=== PATIENT | female | born 1990 | race Caucasian/White ===

== ENCOUNTER 2025-02-17 07:16 | Day surgery (SDC) | payer BC ==
[2025-02-17] VITALS (7 sets, daily range): BP systolic 126–142; BP diastolic 77–98; PULSE 70–103; RESP 10–16; TEMP 98.3; O2SAT 99–100
[~2025-02-17] VITALS: Ht 175.3 cm; Wt 73.8 kg
[~2025-02-17 07:16] MED LIST: NO HOME MEDS
[2025-02-17] MEDS: ringers solution, lacted 1,000 ML IV SCH (08:35)
[2025-02-17] MEDS ORDERED: LIDOcaine 2% (20mg/ml) 5ml vial ONE ×3 (09:17→10:05)
[2025-02-17] MEDS ORDERED: fentaNYL/PF 50MCG/1 ML 2ML syringe ONE ×2 (09:27→10:00)
[2025-02-17] MEDS ORDERED: MIDAZolam 1 MG/ML 5ML VIAL ONE (09:28)
[2025-02-17] MEDS ORDERED: propofol inj 20 ML IV ONE (09:47)
== END 2025-02-17 11:08 | disposition home or self-care (01) ==
LOC: GI LAB 07:16
PROVIDERS: ATTEND Internal Medicine Gastroenterology
DX: K92.1 Melena (principal); R10.30 Lower abdominal pain, unspecified; R11.2 Nausea with vomiting, unspecified; K31.89 Other diseases of stomach and duodenum; K57.30 Diverticulosis of large intestine without perforation or abscess without bleeding; K64.8 Other hemorrhoids; Z79.899 Other long term (current) drug therapy
CPT/HCPCS: 43239; 45378; 82948; J2003; J2250; J2704; J3010; J7040; J7120; Z7512; A4620